=== PATIENT | female | born 1955 | race Caucasian/White ===

== ENCOUNTER 2018-09-12 08:08 | Outpatient (CLI) | payer BC | END 2018-09-12 08:09 | disposition home or self-care (01) | LOC: BICMAMMO 08:08 | PROVIDERS: ATTEND Family Medicine | DX: Z12.31 Encounter for screening mammogram for malignant neoplasm of breast (principal) | CPT/HCPCS: 77063; 77067 ==

== ENCOUNTER 2019-09-13 09:26 | Outpatient (CLI) | payer BC, OTHER ==
--- NOTE | 2019-09-13 11:36 | MMO ---
Bilateral MAMMO Bilat Screen [facility]. CLINICAL HISTORY: Patient is 64 years old and is seen for screening. The patient has no family history of breast cancer. The patient has no personal history of cancer. VIEWS: The views performed were: bilateral craniocaudal with tomosynthesis and bilateral mediolateral oblique with tomosynthesis. FILMS COMPARED: The present examination has been compared to prior imaging studies performed at [facility] on 07/20/2015, 09/07/2016, 09/11/2017 and 09/12/2018. This study has been interpreted with the assistance of computer-aided detection. MAMMOGRAM FINDINGS: There are scattered fibroglandular densities. Finding 1: There is a new focal asymmetry seen in the posterior lower region of the right breast. Finding 2: There are benign appearing calcifications seen in both breasts. IMPRESSION: FINDING 1: NEW FOCAL ASYMMETRY IN THE RIGHT BREAST REQUIRES ADDITIONAL EVALUATION. AN ULTRASOUND EXAM IS RECOMMENDED IF NEEDED. ADDITIONAL IMAGING. FINDING 2: CALCIFICATIONS IN BOTH BREASTS ARE BENIGN. THE RESULTS OF THIS EXAM WERE SENT TO THE PATIENT. ACR BI-RADS Category 0 - Incomplete: Need additional imaging evaluation. [facility] will notify the patient of the need for additional imaging services. MAMMOGRAPHY NOTE: 1. A negative mammogram report should not delay a biopsy if a dominant of clinically suspicious mass is present. 2. Approximately 10% to 15% of breast cancers are not detected by mammography. 3. Adenosis and dense breasts may obscure an underlying neoplasm. Reported by: ARYA DIAZ MD Electonically Signed: [id number]
== END 2019-09-13 09:27 | disposition home or self-care (01) ==
LOC: BICMAMMO 09:26
PROVIDERS: ATTEND Internal Medicine Rheumatology
DX: Z12.31 Encounter for screening mammogram for malignant neoplasm of breast (principal); R92.1 Mammographic calcification found on diagnostic imaging of breast; N64.89 Other specified disorders of breast
CPT/HCPCS: 77063; 77067

== ENCOUNTER 2019-09-30 10:28 | Outpatient (CLI) | payer BC ==
--- NOTE | 2019-09-30 12:47 | ULT ---
LIMITED RIGHT REAST ULTRASOUND: DATE: 09/30/2019. PROVIDED CLINICAL HISTORY: Abnormal mammogram. FINDINGS: Limited sonographic interrogation was performed of the right breast in the region of mammographic con cern at the 6 oclock position near the inframammary fold. The appearance of the breast tissue in this region is normal. There is an elliptical focus of diminished echogenicity seen within the subcutaneous adipose tissue i n the region of mammographic concern. This measures about 1.5 cm x 0.3 cm x 0.7 cm. The sonographic appearance of this process is nonspecific. IMPRESSION: BIRADS category 4 - suspicious abnormality. Nonspecific hypoechoic mass within the subcutaneous adip ose layer. Surgical consultation is recommended. POS: OFF
== END 2019-09-30 10:29 | disposition home or self-care (01) ==
LOC: BICULT 10:28
PROVIDERS: ATTEND Internal Medicine Rheumatology
DX: N64.89 Other specified disorders of breast (principal)

== ENCOUNTER 2021-08-02 12:16 | Inpatient (IN) | payer MEDICARE ==
[~2021-08-02 12:16] MED LIST: Iopamidol 370 76% 100 ML VIAL ONE
[2021-08-02] MEDS ORDERED: Iopamidol-370 76% 500 ML 1 ML ONE (12:18)
[2021-08-02 13:17] LABS: INR-International Normal Ratio 1.1; PTT 29.6 sec (22.9-36.1); Prothrombin Time 14.4 sec (12.0-14.7)
[2021-08-02 13:23] LABS: #Lymphocytes 1.5 thou/uL (1.20-3.40); #Monocytes 0.7 thou/uL (0.11-0.59); #Neutrophils 5.5 thou/uL (1.40-6.50); %Basophils 0.6 % (0.0-1.0); %Eosinophils 0.4 % (0.0-10.0); %Lymphocytes 19.4 % (21.0-51.0); %Monocytes 9.5 % (0.0-10.0); %Neutrophils 70.1 % (42.0-75.0); Hemoglobin 15.6 g/dL (12.0-16.0); MDiff Complete? YES; Macrocytosis SLIGHT = 6-15 cells (100X) (0-5/hpf); Mean Corpuscular HGB CONC 34.5 g/dL (32.0-36.0); Mean Corpuscular Hemoglobin 36.6 pg (27.0-31.0); Mean Platelet Volume 10.6 fL (7.4-10.4); Platelet Count 79 thou/uL (130-400); Platelet Morphology Comment Appears Decreased; Polychromasia SLIGHT = 2-3 cells (100X) (0-2/hpf); RBC Distribution Width 12.2 % (11.5-14.5); Red Blood Cell (RBC) Count 4.27 mill/uL (4.20-5.40); White Blood Cell (WBC) Count 7.8 thou/uL (4.8-10.8)
[2021-08-02] MEDS ORDERED: Heparin 10,000 UNITS/ 10 ML VIAL ONE (13:55)
[2021-08-02] MEDS ORDERED: Lidocaine 1% (PF) 30 ML VIAL ONE (13:56)
[2021-08-02 14:05] LABS: SARS-CoV-2 NAA Rapid Test Not Detected (NotDetected)
[2021-08-02] MEDS ORDERED: Fentanyl 100 MCG/2 ML VIAL ONE (14:27)
[2021-08-02 14:32] LABS: Albumin 3.8 g/dL (3.4-4.8)
[2021-08-02 14:34] LABS: Calcium 9.1 mg/dL (7.8-10.44); Chloride 105 mmol/L (98-107); Potassium 4.3 mmol/L (3.5-5.1); Sodium 139 mmol/L (136-145)
[2021-08-02 14:35] LABS: Globulin 3.4 g/dL (2.4-3.5); Glucose 82 mg/dL (80-115); Protein, Total 7.2 g/dL (5.8-8.1)
[2021-08-02 14:36] LABS: Anion Gap 13 mmol/L (10-20)
[2021-08-02 14:37] LABS: Bilirubin, Total 0.7 mg/dL (0.2-1.2); Carbon Dioxide 25 mmol/L (23-31)
[2021-08-02 14:38] LABS: Alkaline Phosphatase 86 U/L (40-110); Calc. Creatinine Clearance 0 mL/min (70-130)
[2021-08-02 14:39] LABS: BUN (Urea Nitrogen) 11 mg/dL (9.8-20.1)
[2021-08-02 14:40] LABS: AST (SGOT) 48 U/L (5-34)
[2021-08-02 14:41] LABS: ALT (SGPT) 39 U/L (8-55)
[2021-08-02] MEDS ORDERED: Rocuronium Bromide 10 MG/ML (10ML VIAL) ONE (14:46)
[2021-08-02] MEDS ORDERED: Ondansetron PF 4 MG/2 ML Vial ONE (14:46)
[2021-08-02] MEDS ORDERED: Dexamethasone 20 MG/5 ML VIAL ONE (14:46)
[2021-08-02] MEDS ORDERED: Lidocaine 1% PF 5 ML VIAL ONE (14:46)
[2021-08-02] MEDS ORDERED: Succinylcholine 200 MG/10 ml SYRINGE FS ONE (14:46)
[2021-08-02] MEDS ORDERED: Glycopyrrolate 0.2 MG/ML 5 ML SYRINGE ONE (14:46)
[2021-08-02] MEDS ORDERED: PROPOFOL 200 MG/20 ML VIAL ONE (14:46)
[2021-08-02] MEDS ORDERED: Labetalol HCl 100 MG/20 ML VIAL SLOW IVP PRN (15:39)
[2021-08-02] MEDS ORDERED: hydrALAZINE 20 MG/ML VIAL SLOW IVP PRN (15:39)
[2021-08-02] MEDS ORDERED: Mag-Al 1200 mg/1200 mg/30 ML UDCUP PO PRN (15:39)
[2021-08-02] MEDS ORDERED: niCARdipine 25 MG in Sodium Chloride 0.9% 250 ML 240 ML IVPB PRN (15:39)
[2021-08-02] MEDS ORDERED: Milk Of Magnesia 30 ML UDCUP PO PRN (15:39)
[2021-08-02] MEDS ORDERED: Bisacodyl 10 MG SUPP PR PRN (15:39)
[2021-08-02] MEDS ORDERED: Docusate 100 MG CAP PO PRN (15:39)
[2021-08-02] MEDS ORDERED: Albuterol Sulfate 1.25 MG/3 ML NEB ONE (16:20)
[2021-08-02] MEDS ORDERED: Promethazine HCl 25 MG/ML VIAL IVPB PRN (16:34)
[2021-08-02] MEDS ORDERED: Promethazine HCl 25 MG/ML VIAL IM PRN (16:34)
[2021-08-02] MEDS ORDERED: Ondansetron HCl/PF 4 MG/2 ML Vial IVP PRN (16:34)
[2021-08-02] MEDS ORDERED: Morphine Sulfate 2 MG/ML SYRINGE SLOW IVP PRN (16:34)
[2021-08-02] MEDS: Sodium Chloride 0.9% 1,000 ML IV SCH (18:30)
[2021-08-02] MEDS: Atorvastatin Calcium 40 MG TAB PO SCH (21:00)
[2021-08-02 23:57] LABS: Anion Gap 14 mmol/L (10-20); BUN (Urea Nitrogen) 10 mg/dL (9.8-20.1); Calc. Creatinine Clearance 106 mL/min (70-130); Carbon Dioxide 21 mmol/L (23-31); Chloride 110 mmol/L (98-107); Potassium 4.1 mmol/L (3.5-5.1); Sodium 141 mmol/L (136-145)
[2021-08-02 23:58] LABS: ALT (SGPT) 34 U/L (8-55); AST (SGOT) 46 U/L (5-34); Albumin 3.4 g/dL (3.4-4.8); Alkaline Phosphatase 81 U/L (40-110); Bilirubin, Total 0.5 mg/dL (0.2-1.2); Calcium 8.2 mg/dL (7.8-10.44); Globulin 3.1 g/dL (2.4-3.5); Glucose 112 mg/dL (80-115); Protein, Total 6.5 g/dL (5.8-8.1)
[2021-08-03] MEDS ORDERED: Furosemide 40 MG/4 ML VIAL SLOW IVP SCH (01:30)
[2021-08-03] MEDS ORDERED: Furosemide 40 MG/4 ML VIAL ONE (01:45)
[2021-08-03] MEDS: Sodium Chloride 0.9% 1,000 ML IV SCH ×2 (05:53→22:59)
[2021-08-03 06:25] LABS: #Lymphocytes 2.3 thou/uL (1.20-3.40); #Monocytes 0.9 thou/uL (0.11-0.59); %Basophils 0.3 % (0.0-1.0); %Eosinophils 0.1 % (0.0-10.0); %Lymphocytes 17.3 % (21.0-51.0); %Monocytes 7.1 % (0.0-10.0); %Neutrophils 75.2 % (42.0-75.0); Hemoglobin 15.6 g/dL (12.0-16.0); Mean Corpuscular HGB CONC 33.9 g/dL (32.0-36.0); Mean Corpuscular Hemoglobin 35.6 pg (27.0-31.0); Mean Platelet Volume 9.2 fL (7.4-10.4); Platelet Count 142 thou/uL (130-400); RBC Distribution Width 11.4 % (11.5-14.5); Red Blood Cell (RBC) Count 4.38 mill/uL (4.20-5.40); White Blood Cell (WBC) Count 13.3 thou/uL (4.8-10.8)
[2021-08-03 06:41] LABS: Anion Gap 16 mmol/L (10-20); BUN (Urea Nitrogen) 11 mg/dL (9.8-20.1); Calc. Creatinine Clearance 101 mL/min (70-130); Calcium 8.6 mg/dL (7.8-10.44); Carbon Dioxide 23 mmol/L (23-31); Cardiac Risk 2.6 (Less than 4.5); Chloride 107 mmol/L (98-107); Cholesterol 115 mg/dl (< 200 Desired); Glucose 88 mg/dL (80-115); HDL Cholesterol 45 mg/dL (>60 Neg Risk); LDL Cholesterol, Calculated 58 mg/dL; Sodium 142 mmol/L (136-145); Triglycerides 61 mg/dL (Less than 150)
[2021-08-03] MEDS ORDERED: Albuterol Sulfate 1.25 MG/3 ML NEB ONE (08:55)
[2021-08-03] MEDS ORDERED: Sodium Chloride 0.9% 40 ML ONE (08:56)
[2021-08-03] MEDS: Enoxaparin Sodium 40 MG/0.4 ML SYRINGE SC SCH (10:07)
[2021-08-03] MEDS: Aspirin 325 mg Enteric Coated Tablet PO SCH (10:07)
[2021-08-03] MEDS: Aspirin 300 MG Suppository PR SCH (10:07)
[2021-08-03] MEDS ORDERED: Enoxaparin Sodium 40 MG/0.4 ML SYRINGE ONE (10:15)
[2021-08-03] MEDS: Atorvastatin Calcium 40 MG TAB PO SCH (23:00)
[2021-08-04] MEDS ORDERED: hydrALAZINE 20 MG/ML VIAL ONE (06:38)
[2021-08-04] MEDS ORDERED: Albuterol Sulfate 1.25 MG/3 ML NEB ONE (06:51)
[2021-08-04] MEDS: Sodium Chloride 0.9% 1,000 ML IV SCH (06:59)
[2021-08-04] MEDS: Aspirin 325 mg Enteric Coated Tablet PO SCH (07:19)
[2021-08-04] MEDS ORDERED: Enoxaparin Sodium 40 MG/0.4 ML SYRINGE ONE (07:25)
[2021-08-04] MEDS: Enoxaparin Sodium 40 MG/0.4 ML SYRINGE SC SCH (08:10)
[2021-08-04] MEDS: Aspirin 300 MG Suppository PR SCH (08:11)
[2021-08-04] MEDS ORDERED: Furosemide 40 MG/4 ML VIAL SLOW IVP SCH (09:30)
[2021-08-04] MEDS ORDERED: Furosemide 40 MG/4 ML VIAL ONE (09:44)
[2021-08-04] MEDS ORDERED: MD-Gastroview 120 ML BOT ONE (11:13)
[2021-08-04] MEDS: Atorvastatin Calcium 40 MG TAB PO SCH (23:38)
[2021-08-05] MEDS: Aspirin 325 mg Enteric Coated Tablet PO SCH (09:22)
[2021-08-05] MEDS: Aspirin 300 MG Suppository PR SCH (09:39)
[2021-08-05] MEDS: Enoxaparin Sodium 40 MG/0.4 ML SYRINGE SC SCH (09:44)
[2021-08-05] MEDS: cefTRIAXone\\ROCEPHIN 1 GM in Sodium Chloride 0.9% 100 ML IVPB SCH (11:43)
[2021-08-05] MEDS: Atorvastatin Calcium 40 MG TAB PO SCH (22:01)
[2021-08-06 05:17] LABS: #Eosinphils 0.2 thou/uL (0.0-0.7); #Lymphocytes 2.5 thou/uL (1.20-3.40); #Monocytes 0.8 thou/uL (0.11-0.59); %Basophils 0.2 % (0.0-1.0); %Eosinophils 1.9 % (0.0-10.0); %Lymphocytes 26.7 % (21.0-51.0); %Monocytes 8.1 % (0.0-10.0); %Neutrophils 63.1 % (42.0-75.0); Hemoglobin 15.1 g/dL (12.0-16.0); Mean Corpuscular HGB CONC 33.2 g/dL (32.0-36.0); Mean Corpuscular Hemoglobin 34.8 pg (27.0-31.0); Platelet Count 180 thou/uL (130-400); RBC Distribution Width 11.4 % (11.5-14.5); Red Blood Cell (RBC) Count 4.34 mill/uL (4.20-5.40); White Blood Cell (WBC) Count 9.5 thou/uL (4.8-10.8)
[2021-08-06 05:44] LABS: ALT (SGPT) 45 U/L (8-55); AST (SGOT) 52 U/L (5-34); Albumin 3.5 g/dL (3.4-4.8); Alkaline Phosphatase 81 U/L (40-110); Anion Gap 13 mmol/L (10-20); BUN (Urea Nitrogen) 20 mg/dL (9.8-20.1); Bilirubin, Total 0.8 mg/dL (0.2-1.2); Calc. Creatinine Clearance 103 mL/min (70-130); Calcium 8.9 mg/dL (7.8-10.44); Carbon Dioxide 26 mmol/L (23-31); Chloride 108 mmol/L (98-107); Globulin 3.2 g/dL (2.4-3.5); Glucose 176 mg/dL (80-115); Potassium 3.6 mmol/L (3.5-5.1); Protein, Total 6.7 g/dL (5.8-8.1); Sodium 143 mmol/L (136-145)
[2021-08-06 07:09] LABS: Bilirubin Negative (Negative); Blood, Urine 1+ (Negative); Clarity Clear (Clear); Glucose, Urine (Dipstick) Normal (Negative); Ketone, Urine Negative (Negative); Leukocyte 250 Leu/uL (Negative); Nitrite Negative (Negative); Protein, Urine (Dipstick) 10 mg/dL (Neg-Trace); Specific Gravity, Urine 1.032 (1.002-1.036); Squamous Epithelial 0-3 HPF (0-3); Urobilinogen 6 mg/dL (Less than 2)
[2021-08-06 07:14] LABS: Bacteria/HPF Rare-Few HPF (None Seen)
[2021-08-06 07:15] LABS: Urine Culture Reflex Yes Yes
[2021-08-06] MEDS: Aspirin 300 MG Suppository PR SCH (09:17)
[2021-08-06] MEDS: Enoxaparin Sodium 40 MG/0.4 ML SYRINGE SC SCH (09:18)
[2021-08-06] MEDS: Aspirin 325 mg Enteric Coated Tablet PO SCH (09:18)
[2021-08-06] MEDS: cefTRIAXone\\ROCEPHIN 1 GM in Sodium Chloride 0.9% 100 ML IVPB SCH (11:40)
[2021-08-06] MEDS: Atorvastatin Calcium 40 MG TAB PO SCH (21:54)
[2021-08-07] MEDS: Aspirin 325 mg Enteric Coated Tablet PO SCH (09:34)
[2021-08-07] MEDS: Enoxaparin Sodium 40 MG/0.4 ML SYRINGE SC SCH (09:34)
[2021-08-07] MEDS: Aspirin 300 MG Suppository PR SCH (09:34)
[2021-08-07] MEDS: cefTRIAXone\\ROCEPHIN 1 GM in Sodium Chloride 0.9% 100 ML IVPB SCH (12:28)
[2021-08-07] MEDS ORDERED: Fluconazole 100 MG TAB PO SCH (17:30)
[2021-08-07] MEDS: Atorvastatin Calcium 40 MG TAB PO SCH (21:53)
[2021-08-08] MEDS: Aspirin 300 MG Suppository PR SCH (07:54)
[2021-08-08] MEDS: Fluconazole 100 MG TAB PO SCH (10:28)
[2021-08-08] MEDS: Aspirin 325 MG TAB PO SCH (10:28)
[2021-08-08] MEDS: Enoxaparin Sodium 40 MG/0.4 ML SYRINGE SC SCH (10:28)
[2021-08-08] MEDS: cefTRIAXone\\ROCEPHIN 1 GM in Sodium Chloride 0.9% 100 ML IVPB SCH (15:08)
[2021-08-08] MEDS: Atorvastatin Calcium 40 MG TAB PO SCH (22:43)
[2021-08-09] MEDS: Aspirin 300 MG Suppository PR SCH (09:34)
[2021-08-09] MEDS ORDERED: Lidocaine 1% PF 5 ML VIAL ONE (11:57)
[2021-08-09] MEDS ORDERED: PROPOFOL 200 MG/20 ML VIAL ONE (11:57)
[2021-08-09] MEDS ORDERED: Promethazine HCl 25 MG/ML VIAL IM PRN (12:27)
[2021-08-09] MEDS ORDERED: Ondansetron HCl/PF 4 MG/2 ML Vial IVP PRN (12:27)
[2021-08-09] MEDS ORDERED: Promethazine HCl 25 MG/ML VIAL IVPB PRN (12:27)
[2021-08-09] MEDS: Enoxaparin Sodium 40 MG/0.4 ML SYRINGE SC SCH (15:21)
[2021-08-09] MEDS: Aspirin 325 MG TAB PO SCH (15:21)
[2021-08-09] MEDS: Fluconazole 100 MG TAB PO SCH (15:21)
[2021-08-09] MEDS: cefTRIAXone\\ROCEPHIN 1 GM in Sodium Chloride 0.9% 100 ML IVPB SCH (15:22)
[2021-08-09] MEDS: Atorvastatin Calcium 40 MG TAB PO SCH (22:01)
[2021-08-10 06:19] LABS: #Eosinphils 0.2 thou/uL (0.0-0.7); #Lymphocytes 2.9 thou/uL (1.20-3.40); #Neutrophils 5.2 thou/uL (1.40-6.50); %Basophils 0.3 % (0.0-1.0); %Eosinophils 2.4 % (0.0-10.0); %Monocytes 10.9 % (0.0-10.0); %Neutrophils 55.4 % (42.0-75.0); Mean Corpuscular HGB CONC 33.3 g/dL (32.0-36.0); Mean Corpuscular Hemoglobin 34.3 pg (27.0-31.0); Platelet Count 203 thou/uL (130-400); RBC Distribution Width 11.4 % (11.5-14.5); Red Blood Cell (RBC) Count 4.37 mill/uL (4.20-5.40); White Blood Cell (WBC) Count 9.4 thou/uL (4.8-10.8)
[2021-08-10 06:40] LABS: ALT (SGPT) 44 U/L (8-55); AST (SGOT) 48 U/L (5-34); Albumin 3.4 g/dL (3.4-4.8); Alkaline Phosphatase 81 U/L (40-110); Anion Gap 15 mmol/L (10-20); BUN (Urea Nitrogen) 16 mg/dL (9.8-20.1); Bilirubin, Total 0.7 mg/dL (0.2-1.2); Calc. Creatinine Clearance 116 mL/min (70-130); Calcium 8.9 mg/dL (7.8-10.44); Carbon Dioxide 25 mmol/L (23-31); Chloride 103 mmol/L (98-107); Globulin 3.3 g/dL (2.4-3.5); Glucose 115 mg/dL (80-115); Potassium 4.5 mmol/L (3.5-5.1); Protein, Total 6.7 g/dL (5.8-8.1); Sodium 138 mmol/L (136-145)
[2021-08-10] MEDS: Aspirin 325 MG TAB PO SCH (08:53)
[2021-08-10] MEDS: Fluconazole 100 MG TAB PO SCH (08:53)
[2021-08-10] MEDS: Enoxaparin Sodium 40 MG/0.4 ML SYRINGE SC SCH (08:53)
[2021-08-10 08:58] LABS: SARS-CoV-2 PCR by NAA Not Detected (NotDetected)
[2021-08-10] MEDS ORDERED: Lisinopril 5 MG TAB PO SCH (10:00)
[2021-08-10] MEDS: Lisinopril 5 MG TAB PO SCH (11:08)
[2021-08-10] MEDS ORDERED: Morphine IR 10 MG/5 ML UDCUP PER TUBE PRN (18:40)
[2021-08-10] MEDS: Atorvastatin Calcium 40 MG TAB PO SCH (21:20)
[2021-08-10] MEDS: Ibuprofen 200 MG TAB PO PRN (21:34)
[2021-08-11 07:17] LABS: Anion Gap 14 mmol/L (10-20); BUN (Urea Nitrogen) 19 mg/dL (9.8-20.1); Calc. Creatinine Clearance 113 mL/min (70-130); Calcium 9.1 mg/dL (7.8-10.44); Carbon Dioxide 25 mmol/L (23-31); Chloride 104 mmol/L (98-107); Glucose 167 mg/dL (80-115); Potassium 4.1 mmol/L (3.5-5.1); Sodium 139 mmol/L (136-145)
[2021-08-11] MEDS: Aspirin 325 MG TAB PO SCH (08:46)
[2021-08-11] MEDS: Enoxaparin Sodium 40 MG/0.4 ML SYRINGE SC SCH (08:46)
[2021-08-11] MEDS: Acetaminophen 325 MG TAB PO PRN ×2 (08:47→17:51)
[2021-08-11] MEDS: Fluconazole 100 MG TAB PO SCH (08:47)
[2021-08-11] MEDS: Lisinopril 5 MG TAB PO SCH (08:47)
[2021-08-11 09:19] VITALS: BMI 31.3
[2021-08-11] MEDS: Ibuprofen 200 MG TAB PO PRN (22:01)
[2021-08-11] MEDS: Atorvastatin Calcium 40 MG TAB PO SCH (22:02)
[2021-08-12 06:12] LABS: Anion Gap 13 mmol/L (10-20); BUN (Urea Nitrogen) 18 mg/dL (9.8-20.1); Calc. Creatinine Clearance 115 mL/min (70-130); Calcium 9.1 mg/dL (7.8-10.44); Carbon Dioxide 27 mmol/L (23-31); Chloride 104 mmol/L (98-107); Glucose 96 mg/dL (80-115); Potassium 4.5 mmol/L (3.5-5.1); Sodium 139 mmol/L (136-145)
[2021-08-12] MEDS: Fluconazole 100 MG TAB PO SCH (09:20)
[2021-08-12] MEDS: Enoxaparin Sodium 40 MG/0.4 ML SYRINGE SC SCH (09:20)
[2021-08-12] MEDS: Aspirin 325 MG TAB PO SCH (09:20)
[2021-08-12] MEDS: Lisinopril 5 MG TAB PO SCH (09:20)
[2021-08-12 15:50] VITALS: BP 136/66; TEMP 97.6
== END 2021-08-12 19:13 | DRG 24 ==
LOC: ERS 12:16 → SDC 14:04 → PACU-TCU 15:40 → 3SE 08-04 14:50
PROVIDERS: ADMIT Internal Medicine; ATTEND Family Medicine
PROC: 03CG3ZZ Extirpation of Matter from Intracranial Artery, Percutaneous Approach (ICD-10-PCS; principal; 2021-08-02)
PROC: 0DH63UZ Insertion of Feeding Device into Stomach, Percutaneous Approach (ICD-10-PCS; 2021-08-02)
PROC: 0DH67UZ Insertion of Feeding Device into Stomach, Via Natural or Artificial Opening (ICD-10-PCS; 2021-08-04)
DX: I63.311 Cerebral infarction due to thrombosis of right middle cerebral artery (principal); G93.49 Other encephalopathy; G81.91 Hemiplegia, unspecified affecting right dominant side; Z20.822 Contact with and (suspected) exposure to COVID-19; R47.01 Aphasia; R29.810 Facial weakness; R29.721 NIHSS score 21; I10 Essential (primary) hypertension; R09.02 Hypoxemia; D69.6 Thrombocytopenia, unspecified; E66.9 Obesity, unspecified; D75.89 Other specified diseases of blood and blood-forming organs; B37.9 Candidiasis, unspecified; R31.9 Hematuria, unspecified; R82.81 Pyuria; R13.12 Dysphagia, oropharyngeal phase; Z68.31 Body mass index [BMI] 31.0-31.9, adult; Z90.49 Acquired absence of other specified parts of digestive tract
CPT/HCPCS: 0042T; 36415; 36596; 70450; 70496; 70498; 70551; 71045; 74018; 75902; 76942; 80048; 80053; 80061; 81001; 84145; 84484; 85025; 85610; 85730; 87086; 93005; 93306; 94640; 95712; 95819; 95957; C1887; J0360; J0690; J0696; J1100; J1644; J1650; J1940; J2001; J2405; J2704; J3010; J3490; J7050; J7620; Q9963; Q9967; U0002; U0003; U0005